=== PATIENT | male | born 2000 | race Caucasian/White ===

== ENCOUNTER 2020-04-28 17:01 | Emergency (ER) | payer OTHER, SELFPAY ==
[2020-04-28 17:10] VITALS: BP 141/59; PULSE 61; RESP 16; TEMP 36.7; O2SAT 100
--- NOTE | 2020-04-28 17:18 | ED.SKABFB ---
HPI - Skin/Abscess/Foreign Bdy General Chief complaint: Skin/Abscess/Foreign Body Stated complaint: rash on arms/legs/face Time Seen by Provider: 04/28/20 17:15 Source: patient Mode of arrival: ambulatory Limitations: no limitations History of Present Illness HPI narrative: Juanjo Pool is a 20 yo male with no PMH who comes to express care with poison laura on legs, arms, torso, face that started 2 days ago-has tried a [id number]-pas-pypfanm poison laura scrub only Related Data Allergies Allergy/AdvReac Type Severity Reaction Status Date / Time No Known Allergies Allergy Verified 04/28/20 17:19 Review of Systems Review of Systems: Narrative: CONSTITUTIONAL: Denies fever, chills, sweats. EYES: Denies visual changes, redness, discharge. ENT: Denies rhinorrhea, congestion, sore throat, otalgia. CARDIOVASCULAR: Denies chest pain, palpitations, edema. RESPIRATORY: Denies dyspnea, wheezing, cough GASTROINTESTINAL: Denies abdominal pain, nausea, vomiting, diarrhea. GENITOURINARY: Denies dysuria, hematuria, abnormal discharge SKIN: Pruritic rash that is on torso and extremities NEUROLOGIC: Denies numbness, or focal weakness. PSYCHIATRIC: Denies anxiety or depression. [facility] Family History Family History Other No active medical problems Social History Social History (Updated 04/28/20 @ 17:28 by Martine Castillo CNP) Smoking status: Never smoker Alcohol intake: current Comments At time of signature, I agree with nursing past medical, surgical, social and family history. There is no relevant family history pertinent to the presenting complaint. Exam Narrative: Exam Narrative: GENERAL: This is a well-nourished, well-developed patient, in mild distress. HEAD: normocephalic, atraumatic. EYES: Sclera clear/white. Vision is grossly intact. EARS: External ears normal, auditory canals clear and without drainage, TMs normal without perforation. Hearing grossly intact. NOSE: External nose normal without nasal discharge, nares without redness, no rhinorrhea. THROAT: Mucous membranes moist, NECK: Neck supple, CARDIOVASCULAR: Regular rate and rhythm without murmurs, gallops, or rubs. RESPIRATORY: Clear to auscultation. Breath sounds equal bilaterally. No wheezes, rales, or rhonchi. GASTROINTESTINAL: Abdomen soft SKIN: warm, intact with red papular rash on arms legs abdomen and left side of face, vesicles but scabs where it has been scratched NEURO: awake, alert, and oriented to person, place and time. There were no obvious focal neurologic abnormalities. Steady gait EXTREMITIES: Normal range of motion. BACK: Nontender without deformity Course Course Emergency Course: Given Solu-Medrol IM Will be started on Medrol Dosepak Benadryl tabs and Pepcid Cautioned to wash all oral of clothes and shoes Vital Signs Vital signs: Vital Signs Temperature 98.0 F 04/28/20 17:10 Pulse Rate 61 04/28/20 17:10 Respiratory Rate 16 04/28/20 17:10 Blood Pressure 141/59 H 04/28/20 17:10 Pulse Oximetry 100 04/28/20 17:10 Temperature 98.0 F 04/28/20 17:10 Pulse Rate 61 04/28/20 17:10 Respiratory Rate 16 04/28/20 17:10 Blood Pressure 141/59 H 04/28/20 17:10 Pulse Oximetry 100 04/28/20 17:10 MDM - Skin/Abscess/Foreign Bdy Differential Diagnosis Differential diagnosis: Likely urticaria, insect bites, contact dermatitis and other Discharge Plan Discharge Clinical Impression: Contact dermatitis Qualifiers: Contact dermatitis type: allergic Contact dermatitis trigger: non-food plants Qualified Code(s): L23.7 - Allergic contact dermatitis due to plants, except food Patient Disposition: Home, Self-Care Condition: Stable Instructions: Poison Laura (ED) Additional Instructions: Wash all tools close and she was given contact with laura Medication as directed Prescriptions: New methylprednisolone [Medrol ([place])] 4 mg tablets,dose pack See Rx I
[2020-04-28] MEDS: methylPREDNISolone SOD SUCC 125 MG VIAL IM (17:22)
== END 2020-04-28 17:47 | disposition home or self-care (01) ==
PROVIDERS: Emergency Provider Nurse Practitioner
DX: L23.7 Allergic contact dermatitis due to plants, except food (principal)
CPT/HCPCS: 96372; 99213; G0463; J2930